=== PATIENT | male | born 1985 | race Caucasian/White ===

== ENCOUNTER 2017-08-29 15:43 | Emergency (ER) | payer OTHER ==
[2017-08-29 16:45] VITALS: BP 141/63
== END 2017-08-29 16:58 | DRG 563 ==
LOC: ED 15:43
DX: S63.501A Unspecified sprain of right wrist, initial encounter (principal); W19.XXXA Unspecified fall, initial encounter; Y92.149 Unspecified place in prison as the place of occurrence of the external cause